=== PATIENT | female | born 1995 | race African-American/Black ===

== ENCOUNTER 2020-08-03 10:47 | Emergency (ER) | payer MEDICAID, SELFPAY ==
--- NOTE | 2020-08-03 10:49 | ED.GENADULT ---
HPI - General Adult General Chief complaint: Nausea/Vomiting/Diarrhea Stated complaint: Nausea Time Seen by Provider: 08/03/20 10:48 Source: patient Mode of arrival: ambulatory Limitations: no limitations History of Present Illness HPI narrative: 25-year-old female patient presents to the [facility] with complaints of nausea and vomiting for the past 3 days. Patient states she did have one episode of small diarrhea this morning. Patient states she has just not been able to keep anything down and states the last time she vomited was this morning but has been able to keep down a Sprite since vomiting this morning. Patient denies any fevers but states she has had a little bit of a sore throat and a slight cough. Patient denies any abdominal pain. Last menstrual period was June 21. Patient states she has not done a test yet but states she is sexually active and could be . Patient also states that she has been urinating more often than normal and does complain of little bit of low back pain but denies any pain with urination. Related Data Home Medications Medication Instructions Recorded Confirmed No Home Medications 08/03/20 08/03/20 Allergies Allergy/AdvReac Type Severity Reaction Status Date / Time No Known Allergies Allergy Unverified 10/23/18 14:55 Review of Systems Review of Systems: Narrative: CONSTITUTIONAL: Denies fever, chills, or sweats. EYES: Denies visual changes, redness, or discharge. ENT: Denies rhinorrhea, congestion, positive sore throat, denies otalgia. CARDIOVASCULAR: Denies chest pain, palpitations, or edema. RESPIRATORY: Positive mild cough, denies dyspnea. GASTROINTESTINAL: Denies abdominal pain, positive nausea, vomiting, and diarrhea. GENITOURINARY: Denies dysuria or hematuria. Positive frequency of urination SKIN: Denies rash or itching. MUSCULOSKELETAL: Positive low back pain, denies joint pain, or myalgia. NEUROLOGIC: Denies headache, numbness, or weakness. PSYCHIATRIC: Denies anxiety or depression. PMFSH Comments At the time of my signature I agree with nursing past medical history, surgical, social, and family history. There is no relevant family history pertinent to the presenting complaint. Exam Narrative: Exam Narrative: GENERAL: ill-appearing, well-nourished, and in no acute distress. HEAD: Normocephalic, atraumatic. EYES: PERRLA and EOMI. ENT: Nares with erythema and edema noted bilaterally, no rhinorrhea or epistaxis. Mucous membranes moist. Posterior pharynx with no erythema, tonsillectomy, exudates or lesions present. Bilateral TMs are clear no erythema or foreign bodies to the canal. NECK: Supple. No lymphadenopathy CHEST: Clear to auscultation. No respiratory distress. HEART: Regular rate and rhythm. No murmur heard. Normal peripheral pulses. ABDOMEN: Soft, nondistended. No guarding, rebound tenderness, or rigid. No pulsatilla masses. Bowel sounds present in all four quadrants. No organomegaly. Negative Cooper?s sign. No periumbicial tenderness. No Supra public tenderness or distension. Good femoral pulses bilaterally. No hernia noted. No scars or surface trauma. No CVA tenderness on percussion EXTREMITIES: Normal range of motion. No edema. SKIN: Warm, dry, no rash. NEURO: No focal deficits. Alert and oriented x3. Course Reevaluation(s) Reevaluation #1: Reevaluated patient. Discussed with her that her test today is positive. Discussed with her we will go ahead and give her a shot of Phenergan due to the fact the Zofran is not recommended anymore in early . Discussed with her that as long she can keep down food and fluids we will go ahead and discharge her and have her follow-up with her OB however if she continues to vomit despite the Phenergan we will need to send her to the ER for IV fluids and hydration. Discussed with patient that we will still continue to go ahead and do a Covid test on her due to the fact that women are in th
[2020-08-03 11:09] VITALS: BP 118/75; PULSE 83; RESP 16; TEMP 36.6; O2SAT 100
[2020-08-03] MEDS: PROMETHAZINE HCL 25 MG/ML AMPUL IM (11:49)
--- NOTE | 2020-08-03 12:34 | PC.NURSE ---
at 1231 loop cutter stated nausea has cont., mother that provided transportation has left and now is requesting ambulance for transfer to er for further evaluation.
[2020-08-04 14:15] LABS: SARS-CoV-2 RNA PCR Negative
== END 2020-08-03 12:44 | disposition short-term general hospital (02) ==
PROVIDERS: Emergency Provider Nurse Practitioner Family
DX: O21.1 Hyperemesis gravidarum with metabolic disturbance (principal); Z3A.00 Weeks of gestation of pregnancy not specified; Z20.822 Contact with and (suspected) exposure to COVID-19
CPT/HCPCS: 81003; 81025; 87081; 87086; 87880; 96372; 99215; C9803; G0463; J2550; U0003; U0005

== ENCOUNTER 2020-08-03 13:02 | Emergency (ER) | payer MEDICAID, SELFPAY ==
--- NOTE | ~2020-08-03 | US_ITS ---
EXAMINATION: US OB <=14 wk fetus w TV DATE: 08/03/2020 15:02 INDICATION: Uncertain dates. TECHNIQUE: Real-time transabdominal and transvaginal pelvic ultrasound was performed. COMPARISON: None. FINDINGS: TRANSABDOMINAL ULTRASOUND: The uterus measures 10.7 x 5.7 x 5.7 cm. TRANSVAGINAL ULTRASOUND: There is an intrauterine gestational sac. A yolk sac is identified. The fet al crown rump length measures 3 mm, which correlates with an estimated gestational age of 5 weeks and 6 day(s) (+/-) 4 day(s). heart motion is identified measuring 103 beats per minute (bpm) by M- mode Doppler. The right ovary measures 1.8 x 3.5 x 2.0 cm. The left ovary measures 3.1 x 1.9 x 3.1 cm . There is no free fluid in the pelvis. IMPRESSION: 1. Single living intrauterine gestation with estimated date of delivery of 03/30/2021. Reviewed, dictated and finalized at location A. IMPRESSION: 1. Single living intrauterine gestation with estimated date of delivery of 02/2021.
[2020-08-03 13:08] VITALS: BP 117/59; PULSE 78; RESP 16; TEMP 36.7; O2SAT 98
[2020-08-03 13:23] VITALS: BP 117/59; PULSE 78; RESP 20; TEMP 36.7; O2SAT 98
[2020-08-03] MEDS: DEXTROSE 5%/0.9% SOD CHL 1,000 ML 999 ML IV CONT (13:51)
[2020-08-03] MEDS: ONDANSETRON INJ 4 MG/2 ML VIAL IV PUSH (13:51)
[2020-08-03 13:53] LABS: Basophils Percent Auto 0.1 % (0.2-1.2); Eosinophils Percent Auto 0.3 % (0-4.4); Hematocrit 39.3 % (37.0-47.0); Hemoglobin 12.7 g/dL (12.0-15.0); Immature Granulocyte Absolute 0.04 K/mm3 (0.00-0.031); Immature Granulocyte Percent A 0.4 % (0-0.5); Lymphocytes Absolute Auto 1.57 K/mm3 (0.9-3.2); Lymphocytes Percent Auto 14.6 % (18.3-44.2); Mean Corpuscular HGB Conc 32.3 g/dl (32-36); Mean Corpuscular Hemoglobin 26.2 pg (26-34); Mean Platelet Volume 10.5 fl (7.4-10.4); Monocytes Absolute Auto 0.9 K/mm3 (0.1-0.6); Monocytes Percent Auto 8.5 % (2.6-8.5); Neutrophils Absolute Auto 8.2 K/mm3 (1.3-6.7); Neutrophils Percent Auto 76.1 % (45.5-73.1); Platelet Count Result 321 k/mm3 (150-375); Red Blood Count 4.85 M/mm3 (4.2-5.4); Red Cell Distribution Width 15.1 % (11.5-14.5); White Blood Count 10.8 K/mm3 (4.5-10.0)
[2020-08-03 13:59] LABS: Add Urine Microscopic? YES; Amorphous Sediment Urine Few; Appearance Urine Turbid (Clear); Bacteria Urine Trace /hpf; Bilirubin Urine Negative (Negative); Blood Urine Negative (Negative); Color Urine Amber (Yellow); Glucose Urine UA Negative (Negative); Hyaline Casts Urine 20-29 /lpf; Ketones Urine Trace mg/dL (Negative); Leukocyte Esterase Ur Negative LEU/UL (Negative); Mucus Urine Heavy /lpf; Nitrate Urine Negative (Negative); Protein Urine 1+ mg/dL (Negative); Specific Grav Ur 1.019 (1.001-1.035); Squamous Epithelial Cell Urine Few /hpf (Few)
[2020-08-03 14:07] LABS: Alanine Aminotransferase 15 U/L (4-35); Albumin Level 4.2 g/dL (3.5-5.1); Alkaline Phosphatase 45 U/L (38-126); Anion Gap 5 mmol/L (8-16); Aspartate Amino Transferase 24 U/L (14-36); Bilirubin,Total 0.7 mg/dL (0.2-1.3); Blood Urea Nitrogen 4 mg/dL (7-17); Calcium 9.1 mg/dL (8.4-10.2); Carbon Dioxide 26 mmol/L (22-30); Chloride 105 mmol/L (98-107); Estimated CRCL calculation 116 ml/min; Estimated Glomerular Filt Rate > 60; Glucose 92 mg/dL (65-105); Potassium 3.8 mmol/L (3.4-5.0); Sodium 136 mmol/L (137-145)
[2020-08-03] MEDS: HYDROmorphone HCL INJ (*CRX) 1 MG/ML SYR 0.5 MG IV PUSH (14:13)
--- NOTE | 2020-08-03 15:33 | ED.GENADULT ---
HPI - General Adult General Chief complaint: Nausea/Vomiting/Diarrhea <Mely Baig PA-C - Last Filed: 08/03/20 16:19> Stated complaint: n/v, <Mely Baig PA-C - Last Filed: 08/03/20 16:19> Time Seen by Provider: 08/03/20 13:14 <Mely Baig PA-C - Last Filed: 08/03/20 16:19> Source: patient <KOJO Lund Last Filed: 08/03/20 16:19> Mode of arrival: ambulatory <Mely Baig PA-C - Last Filed: 08/03/20 16:19> Limitations: no limitations <Mely Baig PA-C - Last Filed: 08/03/20 16:19> History of Present Illness HPI narrative: Patient presents with chief complaint of nausea vomiting over the past 4 days. Patient was seen at the urgent care and transferred to the ER due to having ketones and some protein in her urine and nausea and vomiting that was not remitted by Phenergan. Patient states she is sexually active and not on control. At the urgent care she was told that she is positive for . This is patient's third the first resulted in miscarriage, the second resulted in live in 2018. Patient states she was a patient of [facility] and plans to return for this . She has not been seen there since 2018. She denies abdominal pain, fevers, chills, cough, shortness of breath or chest pain. She denies vaginal bleeding or discharge. <Mely Baig PA-C - Last Filed: 08/03/20 16:19> Related Data Allergies/adverse reactions: Allergies Allergy/AdvReac Type Severity Reaction Status Date / Time No Known Allergies Allergy Verified 08/03/20 13:26 <Mely Baig PA-C - Last Filed: 08/03/20 16:19> Review of Systems Review of Systems: Narrative: CONSTITUTIONAL: Denies fever, chills, or sweats. EYES: Denies visual changes, redness, or discharge. ENT: Denies rhinorrhea, congestion, sore throat, or otalgia. CARDIOVASCULAR: Denies chest pain, palpitations, or edema. RESPIRATORY: Denies cough or dyspnea. GASTROINTESTINAL: Reports nausea and vomiting denies abdominal pain or diarrhea. GENITOURINARY: Denies dysuria or hematuria. SKIN: Denies rash or itching. MUSCULOSKELETAL: Denies back pain, joint pain, or myalgia. NEUROLOGIC: Denies headache, numbness, dizziness, or weakness. PSYCHIATRIC: Denies anxiety or depression. <Mely Baig PA-C - Last Filed: 08/03/20 16:19> Exam Narrative: Exam Narrative: GENERAL: Mildly ill-appearing, well-nourished HEAD: Normocephalic, atraumatic. EYES: PERRLA and EOMI. ENT: Nares clear, no rhinorrhea or epistaxis. Mucous membranes mildly dry. Oropharynx without tonsillar hypertrophy exudate or other lesions. Bilateral TMs pearly keys nonbulging NECK: Supple. No adenopathy or masses. ROM intact. CHEST: Clear to auscultation. No respiratory distress. No wheezes rales or rhonchi HEART: Regular rate and rhythm. No murmur heard. Normal peripheral pulses. ABDOMEN: Soft, nontender, nondistended, normal active bowel sounds. Not actively vomiting. EXTREMITIES: Normal range of motion. No edema. SKIN: Warm, dry, no rash. NEURO: No focal deficits. Alert and oriented x3. PSYCH: Normal mood and affect. <Mely Baig PA-C - Last Filed: 08/03/20 16:19> Course Vital Signs Vital signs: Vital Signs Temperature 98.1 F 08/03/20 13:08 Pulse Rate 78 08/03/20 13:08 Respiratory Rate 16 08/03/20 13:08 Blood Pressure 117/59 L 08/03/20 13:08 Pulse Oximetry 98 08/03/20 13:08 Temperature 98.1 F 08/03/20 13:23 Pulse Rate 78 08/03/20 13:23 Respiratory Rate 20 08/03/20 13:23 Blood Pressure 117/59 L 08/03/20 13:23 Pulse Oximetry 98 08/03/20 13:23 <Mely Baig PA-C - Last Filed: 08/03/20 16:19> Vital Signs Temperature 98.1 F 08/03/20 13:08 Pulse Rate 78 08/03/20 13:08 Respiratory Rate 16 08/03/20 13:08 Blood Pressure 117/59 L 08/03/20 13:08 Pulse Oximetry 98 08/03/20 13:08 Temperature 98.1 F 08/03/20 13:23 Pul
== END 2020-08-03 16:01 | disposition home or self-care (01) ==
PROVIDERS: Physician Assistant; Emergency Provider General Practice
DX: O21.9 Vomiting of pregnancy, unspecified (principal); Z3A.01 Less than 8 weeks gestation of pregnancy
CPT/HCPCS: 36415; 76801; 76817; 80053; 81001; 81003; 81025; 84702; 85025; 87081; 87086; 87880; 96361; 96372; 96374; 96375; 99284; C9803; J1170; J2405; J2550; J7042; U0003; U0005

== ENCOUNTER 2021-03-19 12:10 | Emergency (ER) | payer MEDICAID, SELFPAY ==
[2021-03-19 12:20] VITALS: BP 133/74; PULSE 93; RESP 18; TEMP 36.3; O2SAT 100
--- NOTE | 2021-03-19 12:53 | ED.FEMALEGU ---
HPI - Female Genitourinary General Chief complaint: Urogenital-Female Stated complaint: UTI Source: patient and RN notes reviewed Limitations: no limitations History of Present Illness HPI Narrative: The patient, previously healthy, presents with a 1 week history of definite urinary frequency and urgency. No fever, low back pain, vomiting/diarrhea, discharge-she did have onset of scant bleeding with a slightly/ 1 week late menstrual cycle. Symptoms are mild most noticeable with micturition Related Data Allergies Allergy/AdvReac Type Severity Reaction Status Date / Time No Known Allergies Allergy Verified 08/03/20 13:26 Review of Systems Review of Systems: General/Constitutional: No weight loss,fever Eyes: N0: Redness,discharge Ears/Nose/Throat: No: Epistaxis,ear discharge Respiratory: Denies: Hemoptysis Gastrointestinal: No Vomiting, Bleeding-rectal Skin: No Lumps, eruption Neurologic: No Focal Weakness,Sz Hematologic: Denies: Petechiae/Purpura Psychiatric: No: Suicida ideationl PMFSH Comments At time of signature, agree with nursing past medical, and family history. There is no relevant family history pertinent to the presenting complaint Exam Narrative: General Appearance: Well appearing,, Conjunctiva clear Ears: External ear normal Nose: Normal nose Mouth/Throat: Normal appearing, Normal lips, Supple Respiratory: Airway patent, No respiratory distress Cardiovascular: RRR Abdomen: Soft, Non-tender, No massess, No organomegaly (no rebound/ surgical signs) Musculoskeletal: Full ROM Skin: Warm, Dry Neurological: A&O x3, Normal affect Course Vital Signs Vital signs: Vital Signs Temperature 97.4 F L 03/19/21 12:20 Pulse Rate 93 03/19/21 12:20 Respiratory Rate 18 03/19/21 12:20 Blood Pressure 133/74 03/19/21 12:20 Pulse Oximetry 100 03/19/21 12:20 Temperature 97.4 F L 03/19/21 12:20 Pulse Rate 93 03/19/21 12:20 Respiratory Rate 18 03/19/21 12:20 Blood Pressure 133/74 03/19/21 12:20 Pulse Oximetry 100 03/19/21 12:20 MDM - Female Genitourinary Lab Data Labs: Lab Results 03/19/21 Range/Units 13:00 C.trachomatis RNA (TMA) Pending N.gonorrhoeae RNA (TMA) Pending UCG Bedside Result Negative Reference Range: Negative Urine Glucose Negative Reference Range: Negative Urine Bilirubin Negative Reference Range: Negative Urine Ketone Negative Reference Range: Negative Urine Specific [place] 1.020 Reference Range:1.001-1.035 Urine Blood 1+ Reference Range: Negative * * Urine pH 6.5 Reference Range: 5.0-9.0 Urine Protein Negative Reference Range: Negative Urine Urobilinogen 0.2 Reference Range: 0.2-1.0 Urine Nitrate Negative Reference Range: Negative Urine Leukocyte Negative Reference Range: Negative Urine Color Yellow Reference Range: Yellow Urine Characteristics Cloudy Discharge Plan Discharge Clinical Impression: Dysuria Patient Disposition: Home, Self-Care Condition: Stable Instructions: Dysuria (ED) Presc
== END 2021-03-19 13:12 | disposition home or self-care (01) ==
PROVIDERS: Emergency Provider Emergency Medicine
DX: R30.0 Dysuria (principal)
CPT/HCPCS: 81003; 81025; 87491; 87591; 99214; G0463

== ENCOUNTER 2021-11-09 19:26 | Emergency (ER) | payer MEDICAID, SELFPAY ==
[2021-11-09 19:39] VITALS: BP 121/66; PULSE 89; RESP 16; TEMP 37.1; O2SAT 98
--- NOTE | 2021-11-09 20:19 | ED.URI ---
HPI - URI/Sore Throat General Chief Complaint: Upper Respiratory Infection Stated Complaint: URI Time Seen by Provider: 11/09/21 20:19 Source: patient and RN notes reviewed Mode of arrival: ambulatory Limitations: no limitations History of Present Illness HPI Narrative: 26-year-old female presented for complaint of sinus congestion, ears itching, and occasional cough for about 8 days. She is currently 7 months . She has not been taking anything for symptoms. She denies shortness of breath, nausea, vomiting, diarrhea, fevers or chills. Endorses sick contacts. She is not vaccinated for COVID or flu. MD elicited complaint: cough Related Data Home Medications Medication Instructions Recorded Confirmed No Home Medications 11/09/21 11/09/21 Allergies Allergy/AdvReac Type Severity Reaction Status Date / Time No Known Allergies Allergy Verified 08/03/20 13:26 Review of Systems Review of Systems: CONSTITUTIONAL: Endorses malaise, chills, sweats, fever EYES: Denies visual changes, redness, or discharge ENT: Reports rhinorrhea, congestion CARDIOVASCULAR: Denies chest pain, palpitations, edema RESPIRATORY: Denies dyspnea GASTROINTESTINAL: Denies abdominal pain, nausea, vomiting, diarrhea SKIN: Denies rash or itching MUSCULOSKELETAL: denies myalgia Exam Narrative: GENERAL: Well-appearing EYES: PERRLA, conjunctivae clear ENT: Mucous membranes moist. TM pearly keys with normal light reflex bilaterally; no tragal tenderness. NECK: Supple. No lymphadenopathy CHEST: Clear to auscultation, breath sounds equal. HEART: Regular rate and rhythm. No murmur heard. SKIN: Warm, dry, no rash. NEURO: Alert and oriented x3. PSYCH: Normal mood and affect Course Course Emergency Course: Patient is aware of diagnosis, understands and agrees to treatment plan. Anticipatory guidance given. Patient agrees to follow-up as directed and is aware of reasons to seek care at the emergency department. Portions of this record may have been created with voice recognition software Level of Care: Express Care Visit Vital Signs Vital signs: Vital Signs Temperature 98.7 F 11/09/21 19:39 Pulse Rate 89 11/09/21 19:39 Respiratory Rate 16 11/09/21 19:39 Blood Pressure 121/66 11/09/21 19:39 Pulse Oximetry 98 11/09/21 19:39 Oxygen Delivery Room Air 11/09/21 19:39 Temperature 98.7 F 11/09/21 19:39 Pulse Rate 89 11/09/21 19:39 Respiratory Rate 16 11/09/21 19:39 Blood Pressure 121/66 11/09/21 19:39 Pulse Oximetry 98 11/09/21 19:39 Oxygen Delivery Room Air 11/09/21 19:39 reviewed MDM - URI/Sore Throat MDM Narrative Medical decision making narrative: strep negative. Advised supportive treatments and she is sentiments , advised only Tylenol and saline for URI symptoms. She can follow-up with her [employer]. Verbalizes understanding Differential Diagnosis Differential diagnosis: Likely upper respiratory infection, sinusitis and viral infection Lab Data Labs: Strep Screen Presumptive Negative *(Reference Range: Negative)* Strep Screen Presumptive Negative *(Reference Range: Negative)* Discharge Plan Discharge Clinical Impression: Upper respiratory infection Qualifiers: URI type: unspecified URI Qualified Code(s): J06.9 - Acute upper respiratory infection, unspecified Patient Disposition: Home, Self-Care Condition: Stable Instructions: Allergic Rhinitis (ED) Additional Instructions: Saline nasal spray as needed Tylenol 1000mg every 8 hours as needed for pain Symptomatic treatment includes: rest, fluids, and increase humidity of the air at home. Follow up with your primary care provider and ObGyn as needed in 1week Go to the ER for worsening symptoms or concerns Prescriptions: No Action No Home Medications Follow-up/Referrals: [facility]
== END 2021-11-09 20:43 | disposition home or self-care (01) ==
PROVIDERS: Emergency Provider Nurse Practitioner Family
DX: O99.519 Diseases of the respiratory system complicating pregnancy, unspecified trimester (principal); Z3A.00 Weeks of gestation of pregnancy not specified; J06.9 Acute upper respiratory infection, unspecified
CPT/HCPCS: 87081; 87880; 99213; G0463

== ENCOUNTER 2023-10-08 10:29 | Emergency (ER) | payer OTHER, SELFPAY ==
[2023-10-08 10:37] VITALS: BP 133/98; PULSE 79; RESP 18; TEMP 36.4; O2SAT 99
--- NOTE | 2023-10-08 10:41 | ED.FEMALEGU ---
HPI - Female Genitourinary General Chief complaint: TELEVISION OPERATOR Stated complaint: Yeast Infection Source: patient and RN notes reviewed Mode of arrival: ambulatory Limitations: no limitations History of Present Illness HPI Narrative: Patient is a 28-year-old female who presents to the [facility] with complaints of possible yeast infection. Patient states that she has been having vaginal itching for the past 2 days with a white/ yellow discharge. Patient states that she has had similar symptoms in the past with prior vaginal yeast infection. Patient also reports dysuria and urinary frequency. She states that she was recently treated for both the UTI and a vaginal yeast infection last month. Patient states that she is approximately 1 week late for her period. Denies abdominal pain, flank pain, nausea, vomiting. Denies fever. Related Data Allergies Allergy/AdvReac Type Severity Reaction Status Date / Time No Known Allergies Allergy Verified 10/08/23 10:38 Review of Systems Review of Systems: CONSTITUTIONAL: Denies fever, chills, or sweats. EYES: Denies visual changes, redness, or discharge. ENT: Denies otalgia and sore throat CARDIOVASCULAR: Denies chest pain, palpitations, or edema. RESPIRATORY: Denies cough or dyspnea. GASTROINTESTINAL: Denies abdominal pain, nausea, vomiting, or diarrhea. GENITOURINARY: Reports urinary frequency and dysuria but denies hematuria. Reports vaginal itching. SKIN: Denies rash or itching. MUSCULOSKELETAL: Denies back pain, joint pain, or myalgia. NEUROLOGIC: Denies headache, numbness, or weakness. Pertinent positives per HPI. PMFSH Comments At the time of my signature, I reviewed and agree with the nursing past medical, surgical, social, and family history. There is no relevant family history pertinent to the patient complaint. Exam Narrative: GENERAL: This is a well-nourished, well-developed patient, in no apparent distress. HEAD: normocephalic, atraumatic. EYES: PERRL. Sclera clear/white. Vision is grossly intact. EARS: External ears normal, auditory canals clear and without drainage, TMs normal without perforation. Hearing grossly intact. NOSE: External nose normal with no obvious nasal discharge, nares without redness, no rhinorrhea. THROAT: Mucous membranes moist, posterior pharynx clear. NECK: Neck supple, non-tender without lymphadenopathy, masses or thyromegaly. CARDIOVASCULAR: Regular rate and rhythm without murmurs, gallops, or rubs. RESPIRATORY: Clear to auscultation. Breath sounds equal bilaterally. No wheezes, rales, or rhonchi. GASTROINTESTINAL: Abdomen soft, non-tender, nondistended. Bowel sounds are active. No hepato-splenomegaly, or palpable masses. No guarding. SKIN: warm, intact with no suspicious lesions or rash, good texture and turgor. NEURO: awake, alert, and oriented to person, place and time. There were no obvious focal neurologic abnormalities. EXTREMITIES: No clubbing, cyanosis, or edema. No joint tenderness, effusion, or edema noted. BACK: Nontender without deformity or crepitance. No flank tenderness. Course Course Level of Care: Express Care Visit Vital Signs Vital signs: Vital Signs Temperature 97.5 F L 10/08/23 10:37 Pulse Rate 79 10/08/23 10:37 Respiratory Rate 18 10/08/23 10:37 Blood Pressure 133/98 H 10/08/23 10:37 Pulse Oximetry 99 10/08/23 10:37 Oxygen Delivery Room Air 10/08/23 10:37 Temperature 97.5 F L 10/08/23 10:37 Pulse Rate 79 10/08/23 10:37 Respiratory Rate 18 10/08/23 10:37 Blood Pressure 133/98 H 10/08/23 10:37 Pulse Oximetry 99 10/08/23 10:37 Oxygen Delivery Room Air 10/08/23 10:37 Reviewed MDM - Female Genitourinary MDM Narrative Medical decision making narrative: Take medication as prescribed. Follow-up with PCP as needed. Differential Diagnosis Differential diagnosis: Likely urinary tract infection, vaginitis and other (vaginal yeast infection) Lab Data Attestation: I reviewed the patien
== END 2023-10-08 11:13 | disposition home or self-care (01) ==
PROVIDERS: Emergency Provider Nurse Practitioner
DX: B37.31 Acute candidiasis of vulva and vagina (principal)
CPT/HCPCS: 81003; 81025; 99213; G0463